=== PATIENT | male | born 1945 | race Caucasian/White ===

== ENCOUNTER 2018-06-15 11:18 | Outpatient (CLI) | payer MEDICARE ==
[2018-06-15 12:17] LABS: #Eosinphils 0.2 thou/uL (0.0-0.7); #Lymphocytes 1.4 thou/uL (1.20-3.40); #Monocytes 0.5 thou/uL (0.11-0.59); #Neutrophils 2.7 thou/uL (1.40-6.50); %Basophils 0.5 % (0.0-1.0); %Eosinophils 3.6 % (0.0-10.0); %Lymphocytes 28.8 % (21.0-51.0); %Monocytes 10.2 % (0.0-10.0); %Neutrophils 56.8 % (42.0-75.0); Hemoglobin 13.5 g/dL (14.0-18.0); Mean Corpuscular HGB CONC 35.1 g/dL (32.0-36.0); Mean Corpuscular Hemoglobin 34.2 pg (27.0-31.0); Mean Corpuscular Volume 97.5 fL (78.0-98.0); Mean Platelet Volume 8.4 fL (7.4-10.4); Platelet Count 155 thou/uL (130-400); RBC Distribution Width 11.9 % (11.5-14.5); Red Blood Cell (RBC) Count 3.95 mill/uL (4.70-6.10); White Blood Cell (WBC) Count 4.7 thou/uL (4.8-10.8)
[2018-06-15 12:35] LABS: Anion Gap 11 mmol/L (10-20); BUN (Urea Nitrogen) 19 mg/dL (8.4-25.7); Calc. Creatinine Clearance 0 mL/min (70-130); Calcium 9.5 mg/dL (7.8-10.44); Carbon Dioxide 26 mmol/L (23-31); Chloride 107 mmol/L (98-107); Estimated GFR-MDRD 78; Glucose 94 mg/dL (83-110); Potassium 4.3 mmol/L (3.5-5.1); Sodium 140 mmol/L (136-145)
== END 2018-06-15 11:19 | disposition home or self-care (01) ==
LOC: LABBT 11:18
PROVIDERS: ATTEND Surgery
DX: Z01.818 Encounter for other preprocedural examination (principal); K40.90 Unilateral inguinal hernia, without obstruction or gangrene, not specified as recurrent
CPT/HCPCS: 80048; 85025; 93005; 93010

== ENCOUNTER 2018-06-29 08:19 | Day surgery (SDC) | payer MEDICARE ==
[2018-06-15 11:25] VITALS: BMI 22.8
[2018-06-29] MEDS ORDERED: CEFAZOLIN/Water 2 GM/20 ML SYRINGE ONE (08:39)
[2018-06-29] MEDS ORDERED: Midazolam HCl 2 mg/2 ml Vial ONE (09:43)
[2018-06-29] MEDS ORDERED: Fentanyl 250 MCG/5 ML VIAL ONE (09:43)
--- NOTE | 2018-06-29 10:54 | OP ---
DATE OF PROCEDURE: 06/29/2018 PREOPERATIVE DIAGNOSIS: Right inguinal hernia. POSTOPERATIVE DIAGNOSES: Right inguinal hernia. PROCEDURE: Da Marlena laparoscopic right inguinal hernia repair with mesh, Bard 3DMax large. SURGEON: Dr. Kadeem Duke. ANESTHESIA: General. ESTIMATED BLOOD LOSS: Minimal. COMPLICATIONS: None. SPECIMEN: None. FINDINGS: Indirect right inguinal hernia. TECHNIQUE: The patient was taken to the operating room and placed supine on the table. After genera l anesthetic was obtained, a Temple was placed. The abdomen was shaved, prepped, and draped in a ster ile fashion. Curved incision made above the umbilicus, cautery used to dissect down to and score the fascia. Abdominal cavity entered bluntly using a Lety clamp. The 11 mm balloon trocar is placed a nd high-flow pneumoperitoneum was obtained. Left and right abdominal 8 mm robot trocars were placed. The patient was placed in Trendelenburg position. All ports are docked to the robot. The peritone um was taken down in the right groin, exposing the preperitoneal space. There was no left inguinal h ernia. The preperitoneal space was bluntly dissected to the pubic tubercle medially, anterior superi karley iliac crest laterally, iliopectineal line fully exposed. Indirect hernia sac dissected out of t he inguinal canal all the way back high upon to the peritoneum as is the cord lipoma. The large mesh had already been placed in the abdomen. The end labeled medial aspects placed over pubic tubercle m edially, the mesh was laid out to fully cover the indirect, direct and femoral areas. The mesh is se wn with 2-0 Vicryl to the pubic tubercle medially and to the posterior fascia laterally. The periton eum is reapproximated using running 3-0 Stratafix. All port sites were infiltrated using local anest hetic. All ports are removed under camera visualization. Pneumoperitoneum was let down. PDS was us ed to close the fascial defect above the umbilicus. All incisions were irrigated and closed using 4- 0 Monocryl and Dermabond. The patient went to recovery room in stable condition. Sponge counts, nee dle counts, lap counts were correct.
[2018-06-29] MEDS ORDERED: PROPOFOL 200 MG/20 ML VIAL ONE (15:33)
[2018-06-29] MEDS ORDERED: ePHEDrine/0.9% NaCl/PF SYRINGE 50 mg/10 ml ONE (15:33)
[2018-06-29] MEDS ORDERED: Glycopyrrolate 0.2 MG/ML 5 ML SYRINGE ONE (15:33)
[2018-06-29] MEDS ORDERED: Lidocaine 1% PF 5 ML VIAL ONE (15:33)
== END 2018-06-29 12:53 | disposition home or self-care (01) ==
LOC: SDC 08:19
PROVIDERS: ATTEND Surgery
PROC: 0YU54JZ Supplement Right Inguinal Region with Synthetic Substitute, Percutaneous Endoscopic Approach (ICD-10-PCS; principal; 2018-06-29)
PROC: 8E0W4CZ Robotic Assisted Procedure of Trunk Region, Percutaneous Endoscopic Approach (ICD-10-PCS; 2018-06-29)
DX: K40.90 Unilateral inguinal hernia, without obstruction or gangrene, not specified as recurrent (principal); Z79.899 Other long term (current) drug therapy; Z88.2 Allergy status to sulfonamides
CPT/HCPCS: 49650; C1781; J2001; J2250; J2704; J3010

== ENCOUNTER 2020-01-09 15:10 | Outpatient (CLI) | payer MEDICARE ==
--- NOTE | 2020-01-09 16:00 | ULT ---
Exam: Thyroid ultrasound HISTORY: Patient has been on thyroid medication for 25+ years. Evaluate for thyroid nodule. COMPARISON: none FINDINGS: Thyroid isthmus measures 0.5 cm Left thyroid lobe measures 1.4 x 2.9 x 1.5 cm Right thyroid lobe measures 1.5 x 4.2 x 1.5 cm Thyroid nodules: There are no nodules throughout the thyroid gland. The thyroid gland is diffusely he terogeneous. There is increased vascularity in the left thyroid lobe IMPRESSION: Diffusely heterogeneous thyroid gland without discrete nodularity.
== END 2020-01-09 15:11 | disposition home or self-care (01) ==
LOC: SCSULT 15:10
PROVIDERS: ATTEND Otolaryngology Plastic Surgery within the Head & Neck
DX: E04.1 Nontoxic single thyroid nodule (principal)
CPT/HCPCS: 76536

== ENCOUNTER 2022-03-16 07:33 | Day surgery (SDC) | payer MEDICARE ==
[2022-03-11 14:48] VITALS: BMI 23.3
[2022-03-16 08:54] LABS: #Eosinphils 0.1 thou/uL (0.0-0.7); #Lymphocytes 1.3 thou/uL (1.20-3.40); #Monocytes 0.4 thou/uL (0.11-0.59); #Neutrophils 1.9 thou/uL (1.40-6.50); %Basophils 0.6 % (0.0-1.0); %Eosinophils 2.3 % (0.0-10.0); %Lymphocytes 35.2 % (21.0-51.0); %Monocytes 10.8 % (0.0-10.0); %Neutrophils 51.2 % (42.0-75.0); Hemoglobin 13.9 g/dL (14.0-18.0); Mean Corpuscular HGB CONC 33.2 g/dL (32.0-36.0); Mean Corpuscular Hemoglobin 34.2 pg (27.0-31.0); Mean Platelet Volume 9.2 fL (7.4-10.4); Platelet Count 157 thou/uL (130-400); RBC Distribution Width 12.4 % (11.5-14.5); Red Blood Cell (RBC) Count 4.07 mill/uL (4.70-6.10); White Blood Cell (WBC) Count 3.7 thou/uL (4.8-10.8)
[2022-03-16] MEDS ORDERED: Fentanyl 100 MCG/2 ML VIAL ONE ×2 (09:12→11:00)
[2022-03-16] MEDS ORDERED: Bupivacaine 0.25% 10 ML VIAL ONE (09:15)
[2022-03-16] MEDS ORDERED: Lidocaine 1% w/Epinephrine 1:100K 20 ML VIAL ONE (09:15)
[2022-03-16] MEDS ORDERED: ceFAZolin (BATCH) 2 GM/100 ML BAG ONE (09:20)
[2022-03-16] MEDS ORDERED: PROPOFOL 200 MG/20 ML VIAL ONE (09:34)
[2022-03-16] MEDS ORDERED: ePHEDrine 50 MG/ML VIAL ONE (09:34)
[2022-03-16] MEDS ORDERED: Lidocaine 1% PF 5 ML VIAL ONE (09:34)
[2022-03-16] MEDS ORDERED: Labetalol HCl 100 MG/20 ML VIAL ONE (09:34)
[2022-03-16] MEDS ORDERED: Glycopyrrolate 0.2 MG/ML 5 ML SYRINGE ONE (09:34)
[2022-03-16] MEDS ORDERED: Rocuronium Bromide 10 MG/ML (10ML VIAL) ONE (09:34)
[2022-03-16 09:41] LABS: Anion Gap 10 mmol/L (10-20); BUN (Urea Nitrogen) 18 mg/dL (8.4-25.7); Calc. Creatinine Clearance 66 mL/min (70-130); Carbon Dioxide 28 mmol/L (23-31); Chloride 108 mmol/L (98-107); Glucose 99 mg/dL (83-110); Potassium 5.2 mmol/L (3.5-5.1); Sodium 141 mmol/L (136-145)
[2022-03-16] MEDS ORDERED: Tamsulosin HCl 0.4 MG CAP ONE (11:35)
[2022-03-16] MEDS ORDERED: HYDROcodone/Acetaminophen 5/325 mg Tablet ONE (11:36)
== END 2022-03-16 16:10 | disposition home or self-care (01) ==
LOC: SDC 07:33
PROVIDERS: ATTEND Surgery
PROC: 0YU64JZ Supplement Left Inguinal Region with Synthetic Substitute, Percutaneous Endoscopic Approach (ICD-10-PCS; principal; 2022-03-16)
PROC: 8E0W4CZ Robotic Assisted Procedure of Trunk Region, Percutaneous Endoscopic Approach (ICD-10-PCS; 2022-03-16)
DX: K40.90 Unilateral inguinal hernia, without obstruction or gangrene, not specified as recurrent (principal); E07.9 Disorder of thyroid, unspecified; Z79.890 Hormone replacement therapy; Z79.899 Other long term (current) drug therapy; Z88.2 Allergy status to sulfonamides; Z88.8 Allergy status to other drugs, medicaments and biological substances
CPT/HCPCS: 80048; 85025; C1781; J0690; J2704; J3010; J3490; S0020